=== PATIENT | female | born 1990 | race Two or more races ===

== ENCOUNTER 2018-04-24 08:29 | Emergency (ER) | payer OTHER ==
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
[2018-04-24 09:32] VITALS: BP 122/67
== END 2018-04-24 09:30 | disposition home or self-care (01) ==
DX: S40.811A Abrasion of right upper arm, initial encounter (principal); V49.49XA Driver injured in collision with other motor vehicles in traffic accident, initial encounter; Y92.410 Unspecified street and highway as the place of occurrence of the external cause